=== PATIENT | male | born 1995 | race Caucasian/White ===

== ENCOUNTER → 2017-04-24 | Emergency (ER) | payer SELFPAY | END | disposition disaster alternative care site (69) | LOC: GAMB 00:45 | DX: S40.211A Abrasion of right shoulder, initial encounter (principal); S80.812A Abrasion, left lower leg, initial encounter; S80.811A Abrasion, right lower leg, initial encounter; S20.91XA Abrasion of unspecified parts of thorax, initial encounter; M25.511 Pain in right shoulder; M79.605 Pain in left leg; M79.604 Pain in right leg; S60.512A Abrasion of left hand, initial encounter; S60.511A Abrasion of right hand, initial encounter; S60.419A Abrasion of unspecified finger, initial encounter; V29.9XXA Motorcycle rider (driver) (passenger) injured in unspecified traffic accident, initial encounter ==